=== PATIENT | male | born 1975 ===

== ENCOUNTER 2018-02-22 10:25 | Inpatient (IN) ==
--- NOTE | 2018-02-22 11:01 | CT ---
EXAM DATE: 02/22/2018 10:54 AM EDT AGE/SEX: 42 years / Male INDICATIONS: Stroke alert. Right side weakness. Right side drift. CLINICAL DATA: This is the patient's initial encounter. Patient reports that signs and symptoms have been present for 1 day and indicates a pain score of 0/10. MEDICAL/SURGICAL HISTORY: Hypertension. None. RADIATION DOSE: 31.35 CTDI (mGy) COMPARISON: No prior exams available for comparison. TECHNIQUE: CT of the head without contrast. Using automated exposure control and adjustment of the mA and/or kV according to patient size, radiation dose was kept as low as reasonably achievable to ob tain optimal diagnostic quality images. DICOM format image data is available electronically for revi ew and comparison. FINDINGS: Cerebrum: The ventricles are normal for age. No evidence of midline shift, mass lesion, hemorrhage or acute infarction. No extraaxial fluid collections are seen. Posterior Fossa: The cerebellum and brainstem are intact. The 4th ventricle is midline. The cerebe llopontine angle is unremarkable. Extracranial: The visualized portion of the orbits is intact. Skull: The calvaria is intact. No evidence of skull fracture. CONCLUSION: 1. No acute intracranial abnormalities. Report was called by [Dr. Tripathi to Dr. Jarquin at 10:59 AM ] Electronically signed by: Savage Tripathi MD 02/22/2018 11:00 AM EDT
[2018-02-22 11:04] LABS: Baso % (Auto) 0.3 % (0.0-2.0); Eos # (Auto) 0.3 th/mm3 (0.0-0.4); Eos % (Auto) 4.5 % (0.0-4.0); Hematocrit 51.3 % (39.0-51.0); Hemoglobin 17.1 gm/dL (13.0-17.0); Lymph # (Auto) 2.9 th/mm3 (1.0-4.8); Lymph % (Auto) 43.9 % (9.0-44.0); Mean Corpuscular HGB Conc 33.3 % (32.0-36.0); Mean Corpuscular Hemoglobin 28.9 pg (27.0-34.0); Mean Corpuscular Volume 86.8 fL (80.0-100.0); Mean Platelet Volume 9.2 fL (7.0-11.0); Mono # (Auto) 0.5 th/mm3 (0.0-0.9); Mono % (Auto) 7.6 % (0.0-8.0); Neut # (Auto) 2.9 th/mm3 (1.8-7.7); Neut % (Auto) 43.7 % (16.0-70.0); Platelet Count 199 th/mm3 (150-450); Red Blood Count 5.91 mil/mm3 (4.50-5.90); Red Cell Distribution Width 13.3 % (11.6-17.2); White Blood Count 6.5 th/mm3 (4.0-11.0)
--- NOTE | 2018-02-22 11:13 | CT ---
EXAM DATE: 02/22/2018 11:01 AM EDT AGE/SEX: 42 years / Male INDICATIONS: Stroke alert. Right sided weakness. Right side drift. CLINICAL DATA: This is the patient's initial encounter. Patient reports that signs and symptoms have been present for 1 day and indicates a pain score of 0/10. MEDICAL/SURGICAL HISTORY: Hypertension. None. RADIATION DOSE: 28.07 CTDI (mGy) COMPARISON: No prior exams available for comparison. TECHNIQUE: Volumetric scanning was performed using a multi-row detector CT scanner during bolus infu lucila of 95 ml Visipaque 320 (iodixanol) nonionic water-soluble contrast as a single exam dose. The data was post processed with a variety of visualization algorithms including full volume maximum int ensity projection, multi-planar sliding thin slab reformation, curved planar reformation, and surface rendering techniques. Using automated exposure control and adjustment of the mA and/or kV according to patient size, radiation dose was kept as low as reasonably achievable to obtain optimal diagnosti c quality images. DICOM format image data is available electronically for review and comparison. FINDINGS: There is excellent visualization of the major intracranial arteries out to the second-order branch ve ssels. There is no evidence for aneurysm, vessel truncation or stenosis, and no evidence for vascula r malformation. CONCLUSION: 1. Negative CTA Head. Electronically signed by: Savage Tripathi MD 02/22/2018 11:11 AM EDT
[2018-02-22 11:14] LABS: Activated Partial Thrombo Time 25.8 sec (24.3-30.1); Prothrombin Time 10.3 sec (9.8-11.6)
[2018-02-22] MEDS ORDERED: Labetalol HCl Inj 100 MG/20 ML Vial IV.PUSH ONE ×2 (11:15→11:32)
[2018-02-22 11:23] LABS: Creatine Kinase 220 U/L (39-308)
--- NOTE | 2018-02-22 11:23 | ED ---
HPI General Chief Complaint: Neuro Symptoms/Deficit Stated Complaint: Neuro Time Seen by Provider: 02/22/18 10:37 History of Present Illness HPI Narrative: This patient was sitting down at work at 10 AM when he developed abrupt onset of right-sided weakness and some right-sided numbness. He has no prior history of CVA or TIA. No headache or speech slurring or confusion. He does not take any blood thinners. He came to the emergency room. I declared him a stroke alert and instituted the stroke alert protocol and sent him to the CT scanner after evaluation. Symptom severity is moderate. Duration 45 minutes. No alleviating factors. No exacerbating factors. Related Data Home Medications Medication Instructions Recorded Confirmed No Known Home Medications 02/22/18 02/22/18 Allergies Allergy/AdvReac Type Severity Reaction Status Date / Time No Known Allergies Allergy Verified 02/22/18 10:29 Review of Systems ROS: all other systems reviewed are negative [facility] Medical History Medical History Patient denies medical problems (Acute) Surgical History Surgical History No history of previous surgery (Acute) Social History Social History Substance History: No History of Abuse Smoking Status: Never smoker How Often Do You Have a Drink Containing Alcohol: Monthly or less Recent Out of Country Travel within the Last 8 Weeks: No Immunization History Tetanus Immunization: Unsure Exam Narrative Exam Narrative: GENERAL: Well-nourished, well-developed patient in no apparent distress. SKIN: Focused skin assessment reveals no rash and nodules. Skin is Warm and dry. HEAD: Atraumatic. Normocephalic. EYES: Pupils equal and round. No scleral icterus. No injection or drainage. ENT: No nasal bleeding or discharge. Mucous membranes pink and moist. NECK: Trachea midline. No JVD. CARDIOVASCULAR: Regular rate and rhythm. No murmur appreciated. RESPIRATORY: No accessory muscle use. Clear to auscultation. Breath sounds equal bilaterally. GASTROINTESTINAL: Abdomen soft, non-tender, nondistended. Hepatic and splenic margins not palpable. MUSCULOSKELETAL: No obvious deformities. No clubbing. No cyanosis. No edema. NEUROLOGICAL: Awake and alert. No obvious cranial nerve deficits. Motor exam does reveal some motor weakness of the right arm and right leg. Left side seems full at 5 out of 5. He has some subjective decreased sensation on the right side but sharp and light touch he reports symmetry throughout. Normal speech. PSYCHIATRIC: Appropriate mood and affect; insight and judgment normal. Course Initial Documented Vital Signs Temperature 98.3 F 02/22/18 10:29 Pulse Rate 114 H 02/22/18 10:29 Respiratory Rate 24 02/22/18 10:29 Blood Pressure 228/117 H 02/22/18 10:29 Pulse Oximetry 97 02/22/18 10:29 Last Documented Vital Signs Temperature 98.3 F 02/22/18 10:29 Pulse Rate 93 H 02/22/18 13:02 Respiratory Rate 21 02/22/18 13:02 Blood Pressure 153/97 H 02/22/18 13:02 Pulse Oximetry 98 02/22/18 13:02 Critical Care Time Critical Care Time: Yes Total Critical Care Time: 80 Attestation: Aggregate critical care time was 80 minutes. Time to perform other separately billable procedures was not included in the critical care time. My time did not include minutes spent treating any other patients simultaneously or on activities that did not directly contribute to the patient's treatment. The services I provided to this patient were to treat and/or prevent clinically significant deterioration that could result in: Permanent neurologic dysfunction , cardiopulmonary arrest, brain stem herniation I provided critical care services requiring my management, as noted below: Chart data review, documentation time, medication orders and management, vital sign assessments/reviewing monitor data, ordering and reviewing lab tests, ordering and interpreting/reviewing x-rays and diagnostic studies, care of the patient and discussion of the patient with the admitting physicians. NIH Stroke Scale NIH Stroke Scale Level of Consciousness: 0-Alert Orientation Questions: 0-Answers both correct Responds to Commands: 0-Both tasks correct Gaze Eye Movement: 0-Horizontal movement WNL Visual Sales: 0-No visual field defect Facial Movement: 1-Minor facial palsy Motor Functions Arm LEFT: 0-No drift Motor Functions Arm RIGHT: 1-Drift before 10 seconds Motor Functions Leg LEFT: 0-No drift Motor Functions Leg RIGHT: 1-Drift before 5 seconds Limb Ataxia: 1-Ataxia in one limb Sensory Loss: 1-Mild sensory loss Best Language: 0-Normal Articulation: 0-Normal Extinction or Inattention Sensory: 0-Absent Total: 5 Quality Measure Queries Stroke Last date observed well: 02/22/18 Last time observed well: 10:00 Medical Decision Making MDM Narrative Medical decision making narrative: This is a 42-year-old male who presents with strokelike symptoms and was made a stroke alert. He has been evaluated by a neurologist. Neurologist wants to institute TPA but the blood pressure is too high at this time. I gave him initially 10 mg IV labetalol when it was 201 systolic. Has come down to 180 systolic. At neurology recommendation I have given a second dose of labetalol. Plan is to institute TPA on the blood pressure is a bit improved. Accu-Chek is normal. Brain CT is reviewed with radiologist and found to show no hemorrhage. CTA of head and neck were done. All the labs reviewed and normal Blood pressure remained elevated and a Cardene drip was instituted. Blood pressure is now down to 168 systolic and TPA has been initiated. I reviewed with the rn compliance who will admit the patient for close intensive care monitoring on TPA. Medical Screen Exam Complete: Yes Emergency Medical Condition: Yes Differential Diagnosis Differential Diagnosis: Ischemic CVA, hemorrhagic CVA, TIA Medical Records Medical records reviewed: Yes I reviewed the patient's medical records. Lab Data Lab results reviewed: Yes I reviewed the patient's lab results. Lab results narrative: CBC normal and troponin normal. Result diagrams: 02/22/18 10:50 Lab Results 02/22/18 02/22/18 02/22/18 Range/Units 10:30 10:50 10:50 WBC (4.0-11.0) th/mm3 RBC (4.50-5.90) mil/mm3 Hgb (13.0-17.0) gm/dL POC Hgb (Calc) 16.7 (13.0-17.0) g/dL Hct (39.0-51.0) % POC Hct 49.0 (39-51.0) % MCV (80.0-100.0) fL MCH (27.0-34.0) pg MCHC (32.0-36.0) % RDW (11.6-17.2) % Plt Count (150-450) th/mm3 MPV (7.0-11.0) fL Neut % (Auto) (16.0-70.0) % Lymph % (Auto) (9.0-44.0) % Davis % (Auto) (0.0-8.0) % Eos % (Auto) (0.0-4.0) % Baso % (Auto) (0.0-2.0) % Neut # (Auto) (1.8-7.7) th/mm3 Lymph # (Auto) (1.0-4.8) th/mm3 Davis # (Auto) (0.0-0.9) th/mm3 Eos # (Auto) (0.0-0.4) th/mm3 Baso # (Auto) (0.0-0.2) th/mm3 WBC Differential Differential Comment PT (9.8-11.6) sec INR Ratio APTT (24.3-30.1) sec Fibrinogen (227-377) mg/dL POC Sodium 143 (137-144) mmol/L POC Potassium 3.2 L (3.6-5.0) mmol/L POC Chloride 104 (102-111) mmol/L POC BUN 16 (5-21) mg/dL POC Creatinine 1.3 (0.6-1.3) mg/dL POC Glucose 94 105 (68-110) mg/dl Total Creatine Kinase (39-308) U/L Troponin I (0.02-0.05) ng/mL Blood Type O Positive Blood Type Recheck Required Antibody Screen Negative 02/22/18 02/22/18 02/22/18 Range/Units 10:50 10:50 10:50 WBC 6.5 (4.0-11.0) th/mm3 RBC 5.91 H (4.50-5.90) mil/mm3 Hgb 17.1 H (13.0-17.0) gm/dL POC Hgb (Calc) (13.0-17.0) g/dL Hct 51.3 H (39.0-51.0) % POC Hct (39-51.0) % MCV 86.8 (80.0-100.0) fL MCH 28.9 (27.0-34.0) pg MCHC 33.3 (32.0-36.0) % RDW 13.3 (11.6-17.2) % Plt Count 199 (150-450) th/mm3 MPV 9.2 (7.0-11.0) fL Neut % (Auto) 43.7 (16.0-70.0) % Lymph % (Auto) 43.9 (9.0-44.0) % Davis % (Auto) 7.6 (0.0-8.0) % Eos % (Auto) 4.5 H (0.0-4.0) % Baso % (Auto) 0.3 (0.0-2.0) % Neut # (Auto) 2.9 (1.8-7.7) th/mm3 Lymph # (Auto) 2.9 (1.0-4.8) th/mm3 Davis # (Auto) 0.5 (0.0-0.9) th/mm3 Eos # (Auto) 0.3 (0.0-0.4) th/mm3 Baso # (Auto) 0.0 (0.0-0.2) th/mm3 WBC Differential . Differential Comment Auto diff final PT 10.3 (9.8-11.6) sec INR 1.0 Ratio APTT 25.8 (24.3-30.1) sec Fibrinogen 249 (227-377) mg/dL POC Sodium (137-144) mmol/L POC Potassium (3.6-5.0) mmol/L POC Chloride (102-111) mmol/L POC BUN (5-21) mg/dL POC Creatinine (0.6-1.3) mg/dL POC Glucose (68-110) mg/dl Total Creatine Kinase 220 (39-308) U/L Troponin I Less than 0.02 L (0.02-0.05) ng/mL Blood Type Blood Type Recheck Antibody Screen Imaging Data Attestation: I personally reviewed and interpreted this imaging study as follows : My impression: Brain CT is normal. CTA of head and neck are also negative for obstruction Radiologist's impression: Head CT 02/22/18 10:44 CONCLUSION: 1. No acute intracranial abnormalities. Report was called by [Dr. Tripathi to Dr. Jarquin at 10:59 AM ] Head CTA 02/22/18 10:44 CONCLUSION: 1. Negative CTA Head. Neck CTA 02/22/18 10:44 CONCLUSION: 1. Negative CTA carotids. Hypoplastic vertebral arteries. Discharge Plan Discharge Disposition Patient Disposition: 30 Still Patient Discharge Details Diagnosis: Acute ischemic cerebrovascular accident (CVA) involving middle cerebral artery territory, Received intravenous tissue plasminogen activator (t-PA) in emergency department Physicians Team ED Provider: David Jarquin Primary Care Provider: UNKNOWN, Rxs /Orders / Referrals /Forms Prescriptions: No Action No Known Home Medications RF: 0 Discharge Interventions Interventions: Vital Signs Last Done: 02/22/18 10:55 Status ED Status: With Doctor
--- NOTE | 2018-02-22 11:27 | CT ---
EXAM DATE: 02/22/2018 11:12 AM EDT AGE/SEX: 42 years / Male INDICATIONS: Stroke alert. Right sided weakness and right side drift. CLINICAL DATA: This is the patient's initial encounter. Patient reports that signs and symptoms have been present for 1 day and indicates a pain score of 0/10. MEDICAL/SURGICAL HISTORY: Hypertension. None. RADIATION DOSE: 28.07 CTDI (mGy) COMPARISON: [facility] [place], CTA HEAD W CONTRAST W 3D, 02/22/2018. . TECHNIQUE: Volumetric scanning was performed using a multirow detector CT scanner during bolus infus ion of 95 ml Visipaque 320 (iodixanol) nonionic water-soluble contrast as a single exam dose. The data was postprocessed with a variety of visualization algorithms including full-volume maximum inten sity projection, multiplanar sliding thin-slab reformation, curved-planar reformation, and surface-re ndering techniques. Using automated exposure control and adjustment of the mA and/or kV according to patient size, radiation dose was kept as low as reasonably achievable to obtain optimal diagnostic q uality images. DICOM format image data is available electronically for review and comparison. Percent stenosis is calculated using the diameter of the stenotic region over the diameter of the nor mal distal internal carotid artery. FINDINGS: The common carotid and internal carotid arteries are patent. No aneurysm or dissection. Vertebral art eries are hypoplastic and most of the posterior circulation comes from [place]. Findings dis cussed with Dr. Bosch. CONCLUSION: 1. Negative CTA carotids. Hypoplastic vertebral arteries. Electronically signed by: Savage Tripathi MD 02/22/2018 11:26 AM EDT
[2018-02-22] MEDS ORDERED: Alteplase Drip 81 MG in Syringe/Bag 1 EACH IV.SIG ONE (12:04)
[2018-02-22] MEDS ORDERED: Alteplase Bolus 9 MG/9 ML Syringe IV.PUSH ONE (12:04)
[2018-02-22] MEDS: niCARdipine Inj 25 MG in Sodium Chlor 0.9% Inj 240 ML IV.CONT PRN ×2 (12:19→22:09)
--- NOTE | 2018-02-22 12:39 | MB ---
cc: Neeraj Bosch MD DATE: 02/22/2018 NEUROLOGY CONSULTATION HISTORY OF PRESENT ILLNESS: A 42-year-old right-handed man with a history of hypertension, otherwise he has been very healthy. He does not take any medications; no blood thinners and he was in a chair today at work at about 9:45 when suddenly he stood up and he noticed that his right arm and leg were tingly and then it seemed to go away after a few seconds and then it kept coming and going and noticed he was unsteady on the right side; came in as a stroke alert. He noticed a tingling a little bit in his face also when he got to the ER. REVIEW OF SYSTEMS: He denies any diabetes, hypercholesterolemia, [place], stent, angioplasty, AFib, Coumadin, chest pain, palpitations, headache, renal, hepatic or pulmonary disease, thyroid disease, lupus, ulcer, cancer, seizure, stroke. No history of bleeding in the brain or brain surgery. SOCIAL HISTORY: He is a not a smoker or drinker, lives with his mother. FAMILY HISTORY: Negative for cancer or seizure. Positive for stroke in uncle. MEDICATIONS: None. He does not take any aspirin or any blood thinners. PHYSICAL EXAMINATION: VITAL SIGNS: On exam, he has been a 201/109. We are having trouble getting his blood pressure down; he is now getting labetalol. Sinus rhythm 95-100, afebrile. NECK: There were no carotid bruits. HEART: Regular rhythm. I did not detect a murmur. NEUROLOGIC: Pupils are equal. Visual aponte are full. Extraocular movements intact was just some hints of nystagmus by horizontal gaze. Face is symmetric with normal sensation. Tongue was midline. He has a positive right drift. He had normal strength in upper and lower extremities bilaterally including the right triceps and finger extensors, but his was very clumsy on the right hand. DTRs are trace in the upper extremities, 2+ and symmetric at the knees. Toes are downgoing bilaterally. There is no heel clonus. Pinprick was intact throughout bilateral face, arm, and legs. He is extremely ataxic on right [id number] and a little less so, but was still very ataxic on right [id number]. He is awake and alert. Speech is fluent. He is not aphasic. NIH stroke scale is a 2; however, he is extremely ataxic on the right. LABORATORY DATA: CBC: His hematocrit 51 otherwise normal, platelet count normal. BMP is normal. CPK is 220. Troponins negative. Coags are normal. IMAGIN. CAT scan of the brain is negative. 2. CTA of the neck and [place]; he is left vertebral dominant. The right vertebral comes up and appears to end possibly in the superior cerebellar artery. 3. CTA of the head was negative . IMPRESSION: Probably a right cerebellar infarct. We will check an MRI of the brain. He is going to get TPA as soon as we get his blood pressure down; we will do to some other workup on him. MD BECCA Taylor/jere/trina , 11:46 AM , 11:56 AM
[2018-02-22] MEDS ORDERED: Potassium Chlor 40 mEq Premix 40 MEQ/100 ML PIGGYBACK IV.SIG PRN ×2 (13:27)
[2018-02-22] MEDS ORDERED: Potassium Phosphate Inj 30 MMOL in Sodium Chlor 0.9% Inj 250 ML IV.SIG PRN (13:27)
[2018-02-22] MEDS ORDERED: Potassium Chloride 25 MEQ Effervescent Tablet PO PRN ×2 (13:27→14:05)
[2018-02-22] MEDS ORDERED: Sodium Phosphate Inj 30 MMOL in Sodium Chlor 0.9% Inj 250 ML IV.SIG PRN (13:27)
[2018-02-22] MEDS ORDERED: Acetaminophen 325 MG Tablet PO PRN (13:27)
[2018-02-22] MEDS ORDERED: Bisacodyl 10 MG Supp RECTAL PRN (13:27)
[2018-02-22] MEDS ORDERED: Magnesium Sulfate Inj 4 GM in Sodium Chlor 0.9% Inj 92 ML IV.SIG PRN (13:27)
[2018-02-22] MEDS ORDERED: Potassium Phosphate 500 MG Soluble Tablet PO PRN ×3 (13:27→14:06)
[2018-02-22] MEDS ORDERED: Magnesium Sulfate Inj 2 GM in Sodium Chlor 0.9% Inj 96 ML IV.SIG PRN (13:27)
[2018-02-22] MEDS ORDERED: Magnesium Oxide 400 MG Tablet PO PRN (13:27)
[2018-02-22] MEDS ORDERED: Potassium Chlor 20 mEq Premix 20 MEQ/100 ML PIGGYBACK IV.SIG PRN (13:27)
[2018-02-22] MEDS ORDERED: Dextrose 50% in Water 50 ML Vial IV.PUSH PRN (13:30)
[2018-02-22] MEDS ORDERED: Labetalol HCl Inj 100 MG/20 ML Vial IV.PUSH PRN (13:30)
[2018-02-22 13:43] LABS: Bilirubin,Urine Negative (Negative); Clarity,Urine Clear (Clear); Color,Urine Straw (Yellw/Straw); Glucose,Urine (UA) Negative (Negative); Leukocyte Esterase,Urine Negative (Negative); Nitrite,Urine Negative (Negative); Specific Gravity,Urine 1.028 (1.002-1.035)
[2018-02-22 13:45] LABS: Amphetamine Screen,Urine Neg (Neg); Barbiturate Screen,Urine Neg (Neg); Cannabinoid Screen,Urine Neg (Neg); Cocaine Screen,Urine Neg (Neg)
--- NOTE | 2018-02-22 13:54 | P.HPCC ---
History of Present Illness Service: Critical care Primary Care Physician: UNKNOWN Chief Complaint: Weakness/ numbness History of Present Illness: 42yM who presented to the ED complaining of sudden-onset right upper and lower extremity weakness and numbness which started at 10 AM. He denies any difficulty with word-finding, slurred speech, confusion, visual disturbance, facial droop, or left-sided symptoms. A stroke alert was activated in the ED, the patient was found to have an NIHSS of 5, and neurology was consulted; he was given alteplase at 12:04 PM. He also had an elevated BP on arrival (200s systolic) and was given 2 doses of labetalol prior to initiation of tPA. He reports complete resolution of symptoms and offers no complaints at present. Past medical history significant for HTN but does not take medication for this. Denies tobacco, alcohol, or illicit drug use. Family history significant for uncle with stroke. - Diagnosis (1) Acute CVA (cerebrovascular accident) (2) Hypertension Review of Systems All other systems reviewed negative except as stated in HPI Constitutional: Denies fever(s) Eyes: Denies change in vision Ears, Nose, Mouth, and Throat: Denies difficulty swallowing Cardiovascular: Denies chest pain Respiratory: Denies shortness of breath Gastrointestinal: Denies vomiting Neurologic: Reports numbness, Reports weakness, Denies confusion Psychiatric: Denies confusion PMFSH - History History Provided By: Patient - Medical History Medical History: Medical History (Last Reviewed 02/22/18 @ 13:42 by Nae Serrano DO) Patient denies medical problems - Surgical History Surgical History: Surgical History (Last Reviewed 02/22/18 @ 13:42 by Nae Serrano DO) No history of previous surgery - Social History I have reviewed the patient's Social History: Yes - Tobacco History Smoking Status: Never smoker - Alcohol History How Often Do You Have a Drink Containing Alcohol: Monthly or less - Substance Use History Substance History: No History of Abuse - Travel History Recent Travel Out of the Country Within the Last 8 Weeks: No - Immunization History Tetanus Immunization: Unsure Medications and Allergies Active Medications: Active Medications Acetaminophen (Tylenol) 650 mg PO Q6H PRN PRN Reason: PAIN 1-10 AND/OR FEVER >101F Al Hydroxide/Mg Hydroxide (Milk Of Magnesia Liq) 30 ml PO Q12H PRN PRN Reason: Mild Constipation Aspirin (Aspirin Chew) 81 mg PO DAILY DANIEL Bisacodyl (Dulcolax Supp) 10 mg RECTAL DAILY PRN PRN Reason: SEVERE CONSITIPATION Chlorhexidine Gluconate (Chlorhexidine 2% Cloth) 3 pack TOPICAL DAILY@0400 DANIEL Stop: 02/28/18 03:59 Chlorhexidine Gluconate (Chlorhexidine 2% Cloth) 3 pack TOPICAL DAILY@0400 PRN PRN Reason: Extra cloth needed Stop: 02/28/18 03:59 Dextrose (D50w Vial) 50 ml IV.PUSH UNSCH PRN PRN Reason: PER HYPOGLYCEMIA PROTOCOL Enalaprilat (Vasotec Inj) 1.25 mg IV.PUSH Q4H PRN PRN Reason: For SBP > 220 or DBP > 120 Glucagon (Glucagon Inj) 1 mg OTHER UNSCH PRN PRN Reason: for Hypoglycemia Protocol Nicardipine HCl 25 mg/ Sodium (Chloride) 250 mls @ 50 mls/hr IV.CONT TITRATE PRN; Protocol PRN Reason: Per Protocol Last Titration: 02/22/18 12:46 Dose: 0 mg/hr, 0 mls/hr Magnesium Sulfate 2 gm/ Sodium (Chloride) 100 mls @ 50 mls/hr IV.SIG UNSCH PRN PRN Reason: For Magnesium 1.2 - 1.6 mg/dL Potassium Chloride (Kcl 40 Meq Premix Inj) 40 meq in 100 mls @ 25 mls/hr IV.SIG Q2H PRN PRN Reason: For Potassium 2.8 - 3.2 mEq/L Potassium Chloride (Kcl 20 Meq Premix Inj) 20 meq in 100 mls @ 50 mls/hr IV.SIG Q2H PRN PRN Reason: For Potassium 3.3 - 3.5 mEq/L Potassium Chloride (Kcl 20 Meq Premix Inj) 20 meq in 100 mls @ 50 mls/hr IV.SIG Q2H PRN PRN Reason: For Potassium 2.8 - 3.2 mEq/L Potassium Phosphate 30 mmol/ (Sodium Chloride) 260 mls @ 42 mls/hr IV.SIG UNSCH PRN PRN Reason: SEE LABEL COMMENTS Magnesium Sulfate 4 gm/ Sodium (Chloride) 100 mls @ 50 mls/hr IV.SIG UNSCH PRN PRN Reason: For Magnesium 0.9 - 1.1 mg/dL Potassium Chloride (Kcl 40 Meq Premix Inj) 40 meq in 100 mls @ 25 mls/hr IV.SIG UNSCH PRN PRN Reason: For Potassium 3.3 - 3.5 mEq/L Sodium Phosphate 30 mmol/ (Sodium Chloride) 260 mls @ 42 mls/hr IV.SIG UNSCH PRN PRN Reason: For Phosphorus < 2.5 mg/dL Insulin Aspart (Novolog Insulin Correctional Sugar Inj) 0 unit SQ ACHS DANIEL; Protocol Labetalol HCl (Trandate Inj) 10 mg IV.PUSH Q2H PRN PRN Reason: For SBP > 220 or DBP > 120 Lactulose (Lactulose Liq) 30 ml PO DAILY PRN PRN Reason: SEVERE CONSITIPATION Magnesium Oxide (Mag-Ox) 800 mg PO UNSCH PRN PRN Reason: For Magnesium 1.2 - 1.6 mg/dL Ondansetron HCl (Zofran Inj) 4 mg IV.PUSH Q6H PRN PRN Reason: NAUSEA OR VOMITING Potassium Bicarb/Potassium Chloride (K-Lyte Cl Eff) 50 meq PO UNSCH PRN PRN Reason: For Potassium 3.3 - 3.5 mEq/L Potassium Phosphate (K-Phos Original) 2,000 mg PO Q4H PRN PRN Reason: Phosphorus Less Than 2.5 mg/dL Potassium Phosphate (K-Phos Original) 2,000 mg PO UNSCH PRN PRN Reason: SEE LABEL COMMENTS Pravastatin Sodium (Pravachol) 40 mg PO HS DANIEL Senna/Docusate Sodium (Cee-Colace) 1 tab PO BID [facility] Sennosides (Senokot) 17.2 mg PO Q12H PRN PRN Reason: Moderate Constipation Sodium Chloride (Ns Flush) 2 ml IV.FLUSH BID [facility] Sodium Chloride (Ns Flush) 2 ml IV.FLUSH PRN PRN PRN Reason: FLUSH AFTER USING IV ACCESS Allergies Allergy/AdvReac Type Severity Reaction Status Date / Time No Known Allergies Allergy Verified 02/22/18 10:29 Home Medications Medication Instructions Recorded Confirmed Type No Known Home Medications 02/22/18 02/22/18 History Results - Labs CBC & Chem 7: 02/22/18 10:50 Labs: Short CBC 02/22/18 Range/Units 10:50 WBC 6.5 (4.0-11.0) th/mm3 Hgb 17.1 H (13.0-17.0) gm/dL Hct 51.3 H (39.0-51.0) % Plt Count 199 (150-450) th/mm3 Cardiac Enzymes 02/22/18 Range/Units 10:50 Total Creatine Kinase 220 (39-308) U/L Troponin I Less than 0.02 L (0.02-0.05) ng/mL - Imaging Impressions Head CT 02/22/18 10:44 CONCLUSION: 1. No acute intracranial abnormalities. Report was called by [Dr. Tripathi to Dr. Jarquin at 10:59 AM ] Head CTA 02/22/18 10:44 CONCLUSION: 1. Negative CTA Head. Neck CTA 02/22/18 10:44 CONCLUSION: 1. Negative CTA carotids. Hypoplastic vertebral arteries. Exam Vital signs: Vital Signs 02/22/18 10:29 02/22/18 10:37 02/22/18 10:50 Temperature 98.3 F Pulse Rate 114 H 100 H 94 H Respiratory Rate 24 20 Blood Pressure 228/117 H 201/109 H Pulse Oximetry 97 97 98 02/22/18 10:55 02/22/18 11:46 02/22/18 12:13 Temperature Pulse Rate 95 H 89 83 Respiratory Rate 20 21 24 Blood Pressure 197/116 H 179/111 H 183/105 H Pulse Oximetry 100 97 98 02/22/18 12:16 02/22/18 12:30 02/22/18 13:02 Temperature Pulse Rate 85 90 93 H Respiratory Rate 16 20 21 Blood Pressure 220/102 H 168/88 H 153/97 H Pulse Oximetry 95 98 98 Intake & Output 02/21/18 02/22/18 02/22/18 18:59 06:59 18:59 Weight 100.698 kg Narrative: GEN: Well-nourished, well-developed, no acute distress HEENT: NCAT, pupils 3 mm and reactive bilaterally, no facial droop NECK: Trachea midline CHEST: Regular rate and rhythm, no murmur PULM: Lungs clear to auscultation bilaterally ABD/GI: Soft and non-tender in all quadrants EXT/MSK: No peripheral edema SKIN: Warm and well-perfused NEURO: GCS 15, A&Ox3, NIHSS currently 0 * Speech clear and fluent, no slurred speech or aphasia, answers questions appropriately * furnace cooler II-XII grossly intact, no facial droop, tongue and uvula midline * Motor strength 5/5 in all extremities, no drift, sensation intact to all extremities * No limb ataxia * Pupils 3 mm and reactive * No focal neuro deficits PSYCH: Appropriate affect Sejal VTE Risk Assessment Sejal VTE Risk Assessment: No/Low Risk (score <= 1) VTE Pharmacological Exception Reason: High risk for bleeding (s/p t-PA) Sejal Risk Assessment Model: Point Value = 1 Point Value = 2 Point Value = 3 Point Value = 5 Age 41-60 Minor surgery BMI > 25 kg/m2 Swollen legs Varicose veins or History of unexplained or recurrent spontaneous Oral contraceptives or hormone replacement Sepsis (< 1 month) Serious lung disease, including pneumonia (< 1 month) Abnormal pulmonary function Acute myocardial infarction Congestive heart failure (< 1 month) History of inflammatory bowel disease Medical patient at bed rest Age 61-74 Arthroscopic surgery Major open surgery (> 45 min) Laparoscopic surgery (> 45 min) Malignancy Confined to bed (> 72 hours) Immobilizing plaster cast Central venous access Age >= 75 History of VTE Family history of VTE Factor V Leiden Prothrombin [id number] Lupus anticoagulant Anticardiolipin antibodies Elevated serum homocysteine Heparin-induced thrombocytopenia Other congenital or acquired thrombophilia Stroke (< 1 month) Elective arthroplasty Hip, pelvis, or leg fracture Acute spinal cord injury (< 1 month) Prophylaxis Regimen: Total Risk Factor Score Risk Level Prophylaxis Regimen 0-1 Low Early ambulation 2 Moderate Order ONE of the following: *Sequential Compression Device (SCD) *Heparin 5000 units SQ BID 3-4 Higher Order ONE of the following medications: *Heparin 5000 units SQ TID *Enoxaparin/Lovenox 40 mg SQ daily (WT < 150 kg, CrCl > 30 mL/min) *Enoxaparin/Lovenox 30 mg SQ daily (WT < 150 kg, CrCl > 10-29 mL/min) *Enoxaparin/Lovenox 30 mg SQ BID (WT < 150 kg, CrCl > 30 mL/min) AND/OR *Sequential Compression Device (SCD) 5 or more Highest Order ONE of the following medications: *Heparin 5000 units SQ TID (Preferred with Epidurals) *Enoxaparin/Lovenox 40 mg SQ daily (WT < 150 kg, CrCl > 30 mL/min) *Enoxaparin/Lovenox 30 mg SQ daily (WT < 150 kg, CrCl > 10-29 mL/min) *Enoxaparin/Lovenox 30 mg SQ BID (WT < 150 kg, CrCl > 30 mL/min) AND *Sequential Compression Device (SCD) Assessment and Plan - Problem List (1) Acute CVA (cerebrovascular accident) Code(s): I63.9 - Cerebral infarction, unspecified Status: Acute (2) Hypertension Code(s): I10 - Essential (primary) hypertension Status: Acute - Assessment and Plan Plan: 42yM presenting as a stroke alert, presumed ischemic CVA s/p tPA Acute ischemic cerebrovascular accident * Admit to ICU for close monitoring after thrombolytic therapy * BP control * ASA, statin * 2D echo * 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 This includes examining the patient, gathering history from someone other than the patient (i.e. chart review), discussing the patient's care with other providers, managing the patient's blood pressure and post-thrombolytic care, reviewing all radiologic and laboratory studies, and documentation. Amount of time is separate from teaching, counseling the patient and/or family, and exclusive of procedures. Level 3 H&P Code Status: Full H&P: Quality - Stroke Onset of Symptoms Date: 02/22/18 Onset of Symptoms Time: 10:00
[2018-02-22 13:55] LABS: Opiate Screen,Urine Neg (Neg)
[2018-02-22 14:08] LABS: Free T4 (Free Thyroxine) 1.16 ng/dL (0.76-1.46); Thyroid Stimulating Hormone 1.12 uIU/mL (0.358-3.740)
--- NOTE | 2018-02-22 14:09 | MR ---
EXAM DATE: 02/22/2018 1:59 PM EDT AGE/SEX: 42 years / Male INDICATIONS: Stroke. Right sided numbness and weakness. CLINICAL DATA: This is the patient's initial encounter. Patient reports that signs and symptoms have been present for 1 day and indicates a pain score of 0/10. MEDICAL/SURGICAL HISTORY: Hypertension. None. [place] [facility] [place]/2018. . TECHNIQUE: Multiplanar, multisequence examination of the brain was performed without and with 10 ml G adavist (gadobutrol) contrast as a single exam dose. FINDINGS: Cerebrum: The ventricles are normal for age. No evidence of midline shift, mass lesion, hemorrhage or acute infarction. No extraaxial fluid collections are seen. The pituitary gland and suprasellar cistern are normal in configuration. White Matter: No significant signal abnormalities are seen in the white matter. Posterior Fossa: The cerebellum and brainstem are intact. The 4th ventricle is midline. The cerebel lopontine angle is unremarkable. The cerebellar tonsils are normal in position. Diffusion Imaging: An area of restricted diffusion is seen involving the left trent radiata within the parietal lobe. This is bilobed in appearance. It measures approximately 1 cm in diameter. Extracranial: The visualized portions of the orbits and paranasal sinuses are unremarkable. Post Contrast: No abnormal areas of parenchymal or dural enhancement. No evidence of blood-brain ba rrier breakdown. CONCLUSION: 1. A small acute to subacute lacunar infarction involving the left trent radiata. Electronically signed by: Bright Henry MD 02/22/2018 2:08 PM EDT
[2018-02-22] MEDS ORDERED: Gadobutrol PF 10 MMOL/10 ML Vial (for RAD) IV.SIG ONE (14:12)
[2018-02-22] MEDS: Insulin NovoLOG Aspart Correctional Sugar Inj SQ SCH ×2 (17:55→21:25)
[2018-02-22] MEDS: Potassium Chlor 20 mEq Premix 20 MEQ/100 ML PIGGYBACK IV.SIG PRN ×2 (20:03→23:37)
[2018-02-22] MEDS: Senna/Docusate Sodium 8.6/50 MG Tablet PO SCH (21:25)
[2018-02-23] MEDS: Potassium Chlor 20 mEq Premix 20 MEQ/100 ML PIGGYBACK IV.SIG PRN ×2 (02:41→07:24)
[2018-02-23] MEDS ORDERED: Chlorhexidine Gluconate 2% 1 Pack (2 Cloths) TOPICAL PRN (04:00)
[2018-02-23] MEDS: Chlorhexidine Gluconate 2% 1 Pack (2 Cloths) TOPICAL SCH (05:11)
--- NOTE | 2018-02-23 08:23 | P.PNCC ---
Subjective Subjective Remarks/Hospital Course: 42yM who presented to the ED complaining of sudden-onset right upper and lower extremity weakness and numbness which started at 10 AM. He denies any difficulty with word-finding, slurred speech, confusion, visual disturbance, facial droop, or left-sided symptoms. A stroke alert was activated in the ED, the patient was found to have an NIHSS of 5, and neurology was consulted; he was given alteplase at 12:04 PM. He also had an elevated BP on arrival (200s systolic) and was given 2 doses of labetalol prior to initiation of tPA. He reports complete resolution of symptoms and offers no complaints at present. Past medical history significant for HTN but does not take medication for this. Denies tobacco, alcohol, or illicit drug use. Family history significant for uncle with stroke. 02/23: Stroke symptoms have cleared completely. He is scheduled for repeat CT of the head 24 hours following the TPA. Blood pressure control acceptable. Will probably need to be started on antihypertensives as a home medication. Neuro workup continues. I have initiated lisinopril and hydralazine rx. He tends to be bradycardic. - Diagnosis (1) Acute CVA (cerebrovascular accident) (2) Hypertension Objective Vital Signs / I&O: Vital Signs 02/22/18 10:29 02/22/18 10:37 02/22/18 10:50 Temperature 98.3 F Pulse Rate 114 H 100 H 94 H Respiratory Rate 24 20 Blood Pressure 228/117 H 201/109 H Pulse Oximetry 97 97 98 02/22/18 10:55 02/22/18 11:46 02/22/18 12:13 Temperature Pulse Rate 95 H 89 83 Respiratory Rate 20 21 24 Blood Pressure 197/116 H 179/111 H 183/105 H Pulse Oximetry 100 97 98 02/22/18 12:16 02/22/18 12:30 02/22/18 13:02 Temperature Pulse Rate 85 90 93 H Respiratory Rate 16 20 21 Blood Pressure 220/102 H 168/88 H 153/97 H Pulse Oximetry 95 98 98 02/22/18 13:15 02/22/18 13:30 02/22/18 13:45 Temperature Pulse Rate 87 78 84 Respiratory Rate 20 19 22 Blood Pressure 165/120 H 149/87 H 174/98 H Pulse Oximetry 95 97 97 02/22/18 14:44 02/22/18 14:46 02/22/18 15:00 Temperature 98.4 F Pulse Rate 92 H 90 84 Respiratory Rate 31 H 22 Blood Pressure 167/113 H Pulse Oximetry 96 02/22/18 15:01 02/22/18 15:31 02/22/18 16:00 Temperature 98.4 F Pulse Rate 85 81 76 Respiratory Rate 47 H 30 H 32 H Blood Pressure 166/95 H 172/99 H Pulse Oximetry 97 97 99 02/22/18 16:01 02/22/18 16:18 02/22/18 16:33 Temperature Pulse Rate 79 81 78 Respiratory Rate 26 H 23 25 H Blood Pressure 169/104 H 167/104 H 149/97 H Pulse Oximetry 98 97 97 02/22/18 16:48 02/22/18 17:00 02/22/18 17:03 Temperature Pulse Rate 80 77 77 Respiratory Rate 29 H 28 H 20 Blood Pressure 173/108 H 159/100 H Pulse Oximetry 98 96 94 L 02/22/18 17:18 02/22/18 17:33 02/22/18 17:34 Temperature Pulse Rate 64 81 81 Respiratory Rate 21 29 H 22 Blood Pressure 145/84 H 191/103 H 182/111 H Pulse Oximetry 95 99 98 02/22/18 17:48 02/22/18 18:00 02/22/18 18:03 Temperature Pulse Rate 84 91 H 93 H Respiratory Rate 31 H 17 27 H Blood Pressure 176/105 H 147/90 H 160/95 H Pulse Oximetry 97 98 97 02/22/18 18:18 02/22/18 18:33 02/22/18 18:48 Temperature Pulse Rate 89 99 H 99 H Respiratory Rate 34 H 24 24 Blood Pressure 147/90 H 153/90 H 158/92 H Pulse Oximetry 97 98 96 02/22/18 19:00 02/22/18 19:50 02/22/18 20:00 Temperature 98.8 F 98.8 F Pulse Rate 100 H 98 H 98 H Respiratory Rate 22 27 H 27 H Blood Pressure 140/87 159/96 H 153/88 H Pulse Oximetry 96 97 97 02/22/18 20:50 02/22/18 20:55 02/22/18 21:00 Temperature Pulse Rate 78 78 Respiratory Rate 21 21 Blood Pressure 146/80 H 140/76 Pulse Oximetry 94 L 96 94 L 02/22/18 21:50 02/22/18 22:00 02/22/18 23:00 Temperature Pulse Rate 75 73 70 Respiratory Rate 16 18 17 Blood Pressure 128/74 129/81 129/75 Pulse Oximetry 92 L 94 L 93 L 02/23/18 00:00 02/23/18 01:00 02/23/18 02:00 Temperature 98.2 F Pulse Rate 66 68 60 Respiratory Rate 16 16 16 Blood Pressure 116/69 124/74 121/75 Pulse Oximetry 94 L 94 L 95 02/23/18 03:00 02/23/18 04:00 02/23/18 05:00 Temperature 98.1 F Pulse Rate 76 56 L 56 L Respiratory Rate 19 16 14 Blood Pressure 142/92 H 142/89 H 170/98 H Pulse Oximetry 96 95 93 L 02/23/18 06:00 Temperature Pulse Rate 52 L Respiratory Rate 15 Blood Pressure 140/86 Pulse Oximetry 97 Intake & Output 02/22/18 02/23/18 02/23/18 18:59 06:59 18:59 Intake Total 321 / 321 450 / 450 100 / 100 Output Total 900 / 900 Balance 321 / 321 -450 / -450 100 / 100 Weight 105.1 kg 103.6 kg Intake: IV 81 / 81 450 / 450 100 / 100 Cardene Inj 25 MG In NS Inj 240 250 / 250 ML @ 5 MG/HR 50 mls/hr IV.CONT TITRATE PRN Rx#:[id number] Activase Drip 81 MG In Bag/ 81 / 81 Syringe 1 EACH @ 81 mls/hr IV. SIG ONCE ONE Rx#:[id number] KCl 20 mEq Premix Inj 20 meq In 200 / 200 100 / 100 100 ml @ 50 mls/hr IV.SIG Q2H PRN Rx#:[id number] Oral 240 / 240 Output: Urine 900 / 900 Other: # Voids 4 2 Weight On Admission 100.69 kg Result Diagrams: 02/22/18 10:50 Objective Remarks: Narrative: GEN: Well-nourished, well-developed, no acute distress, calm HEENT: NCAT, pupils 2 mm and reactive bilaterally, no facial droop NECK: Trachea midline, airway widely patent CHEST: Regular rate and rhythm, no murmur, rub. No JVD PULM: Lungs clear to auscultation bilaterally, no adventitious sounds. ABD/GI: Soft and non-tender in all quadrants, no guarding, bowel sounds active. EXT/MSK: No peripheral edema, warm, well-perfused NEURO: GCS 15, A&Ox3, NIHSS remains 0 * Speech clear and fluent, no slurred speech or aphasia, answers questions appropriately * shell molder II-XII grossly intact, no facial droop, tongue protrusion midline * Motor strength 5/5 in all extremities, no drift, sensation intact to all extremities * No limb ataxia * Pupils 3 mm and reactive * No focal neuro deficits PSYCH: Appropriate affect, calm, conversant. 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 Evaluation for etiology in progress. Progress Note: Quality - Stroke Onset of Symptoms Date: 02/22/18 Onset of Symptoms Time: 10:00
[2018-02-23] MEDS ORDERED: Lisinopril 5 MG Tablet PO SCH (09:00)
[2018-02-23] MEDS: Senna/Docusate Sodium 8.6/50 MG Tablet PO SCH ×2 (09:15→20:11)
--- NOTE | 2018-02-23 12:17 | P.PNNEU ---
Subjective Subjective Comments: sr s/p tpa Active Medications: Active Medications Acetaminophen (Tylenol) 650 mg PO Q6H PRN PRN Reason: PAIN 1-10 AND/OR FEVER >101F Al Hydroxide/Mg Hydroxide (Milk Of Vanesa Garnett) 30 ml PO Q12H PRN PRN Reason: Mild Constipation Aspirin (Aspirin Chew) 81 mg PO DAILY DANIEL Bisacodyl (Dulcolax Supp) 10 mg RECTAL DAILY PRN PRN Reason: SEVERE CONSITIPATION Chlorhexidine Gluconate (Chlorhexidine 2% Cloth) 3 pack TOPICAL DAILY@0400 DANIEL Stop: 02/28/18 03:59 Last Admin: 02/23/18 05:11 Dose: 3 pack Chlorhexidine Gluconate (Chlorhexidine 2% Cloth) 3 pack TOPICAL DAILY@0400 PRN PRN Reason: Extra cloth needed Stop: 02/28/18 03:59 Dextrose (D50w Vial) 50 ml IV.PUSH UNSCH PRN PRN Reason: PER HYPOGLYCEMIA PROTOCOL Enalaprilat (Vasotec Inj) 1.25 mg IV.PUSH Q4H PRN PRN Reason: For SBP > 220 or DBP > 120 Glucagon (Glucagon Inj) 1 mg OTHER UNSCH PRN PRN Reason: for Hypoglycemia Protocol Nicardipine HCl 25 mg/ Sodium (Chloride) 250 mls @ 50 mls/hr IV.CONT TITRATE PRN; Protocol PRN Reason: Per Protocol Last Titration: 02/23/18 00:00 Dose: 0 mg/hr, 0 mls/hr Magnesium Sulfate 2 gm/ Sodium (Chloride) 100 mls @ 50 mls/hr IV.SIG UNSCH PRN PRN Reason: For Magnesium 1.2 - 1.6 mg/dL Potassium Chloride (Kcl 40 Meq Premix Inj) 40 meq in 100 mls @ 50 mls/hr IV.SIG Q2H PRN PRN Reason: For Potassium 2.8 - 3.2 mEq/L Potassium Chloride (Kcl 20 Meq Premix Inj) 20 meq in 100 mls @ 50 mls/hr IV.SIG Q2H PRN PRN Reason: For Potassium 3.3 - 3.5 mEq/L Potassium Chloride (Kcl 20 Meq Premix Inj) 20 meq in 100 mls @ 50 mls/hr IV.SIG Q2H PRN PRN Reason: For Potassium 2.8 - 3.2 mEq/L Last Admin: 02/23/18 07:24 Dose: 20 mls/hr Potassium Phosphate 30 mmol/ (Sodium Chloride) 260 mls @ 42 mls/hr IV.SIG UNSCH PRN PRN Reason: SEE LABEL COMMENTS Magnesium Sulfate 4 gm/ Sodium (Chloride) 100 mls @ 50 mls/hr IV.SIG UNSCH PRN PRN Reason: For Magnesium 0.9 - 1.1 mg/dL Potassium Chloride (Kcl 40 Meq Premix Inj) 40 meq in 100 mls @ 25 mls/hr IV.SIG UNSCH PRN PRN Reason: For Potassium 3.3 - 3.5 mEq/L Sodium Phosphate 30 mmol/ (Sodium Chloride) 260 mls @ 42 mls/hr IV.SIG UNSCH PRN PRN Reason: For Phosphorus < 2.5 mg/dL Insulin Aspart (Novolog Insulin Correctional Sugar Inj) 0 unit SQ ACHS [facility]; Protocol Last Admin: 02/22/18 21:25 Dose: Not Given Labetalol HCl (Trandate Inj) 10 mg IV.PUSH Q2H PRN PRN Reason: For SBP > 220 or DBP > 120 Lactulose (Lactulose Liq) 30 ml PO DAILY PRN PRN Reason: SEVERE CONSITIPATION Lisinopril (Prinivil) 5 mg PO DAILY [facility] Last Admin: 02/23/18 09:15 Dose: 5 mg Magnesium Oxide (Mag-Ox) 800 mg PO UNSCH PRN PRN Reason: For Magnesium 1.2 - 1.6 mg/dL Ondansetron HCl (Zofran Inj) 4 mg IV.PUSH Q6H PRN PRN Reason: NAUSEA OR VOMITING Potassium Bicarb/Potassium Chloride (K-Lyte Cl Eff) 50 meq PO UNSCH PRN PRN Reason: For Potassium 3.3 - 3.5 mEq/L Potassium Phosphate (K-Phos Original) 2,000 mg PO UNSCH PRN PRN Reason: SEE LABEL COMMENTS Potassium Phosphate (K-Phos Original) 2,000 mg PO Q4H PRN PRN Reason: Phosphorus Less Than 2.5 mg/dL Pravastatin Sodium (Pravachol) 40 mg PO HS [facility] Last Admin: 02/22/18 21:25 Dose: Not Given Senna/Docusate Sodium (Cee-Colace) 1 tab PO BID [facility] Last Admin: 02/23/18 09:15 Dose: 1 tab Sennosides (Senokot) 17.2 mg PO Q12H PRN PRN Reason: Moderate Constipation Sodium Chloride (Ns Flush) 2 ml IV.FLUSH BID DANIEL Last Admin: 02/22/18 20:43 Dose: 2 ml Sodium Chloride (Ns Flush) 2 ml IV.FLUSH UNSCH PRN PRN Reason: FLUSH AFTER USING IV ACCESS Allergies/Adverse Reactions: Allergies Allergy/AdvReac Type Severity Reaction Status Date / Time No Known Allergies Allergy Verified 02/22/18 10:29 Physical Exam Vital signs: Vital Signs 02/22/18 12:16 02/22/18 12:30 02/22/18 13:02 Temperature Pulse Rate 85 90 93 H Respiratory Rate 16 20 21 Blood Pressure 220/102 H 168/88 H 153/97 H Pulse Oximetry 95 98 98 02/22/18 13:15 02/22/18 13:30 02/22/18 13:45 Temperature Pulse Rate 87 78 84 Respiratory Rate 20 19 22 Blood Pressure 165/120 H 149/87 H 174/98 H Pulse Oximetry 95 97 97 02/22/18 14:44 02/22/18 14:46 02/22/18 15:00 Temperature 98.4 F Pulse Rate 92 H 90 84 Respiratory Rate 31 H 22 Blood Pressure 167/113 H Pulse Oximetry 96 02/22/18 15:01 02/22/18 15:31 02/22/18 16:00 Temperature 98.4 F Pulse Rate 85 81 76 Respiratory Rate 47 H 30 H 32 H Blood Pressure 166/95 H 172/99 H Pulse Oximetry 97 97 99 02/22/18 16:01 02/22/18 16:18 02/22/18 16:33 Temperature Pulse Rate 79 81 78 Respiratory Rate 26 H 23 25 H Blood Pressure 169/104 H 167/104 H 149/97 H Pulse Oximetry 98 97 97 02/22/18 16:48 02/22/18 17:00 02/22/18 17:03 Temperature Pulse Rate 80 77 77 Respiratory Rate 29 H 28 H 20 Blood Pressure 173/108 H 159/100 H Pulse Oximetry 98 96 94 L 02/22/18 17:18 02/22/18 17:33 02/22/18 17:34 Temperature Pulse Rate 64 81 81 Respiratory Rate 21 29 H 22 Blood Pressure 145/84 H 191/103 H 182/111 H Pulse Oximetry 95 99 98 02/22/18 17:48 02/22/18 18:00 02/22/18 18:03 Temperature Pulse Rate 84 91 H 93 H Respiratory Rate 31 H 17 27 H Blood Pressure 176/105 H 147/90 H 160/95 H Pulse Oximetry 97 98 97 02/22/18 18:18 02/22/18 18:33 02/22/18 18:48 Temperature Pulse Rate 89 99 H 99 H Respiratory Rate 34 H 24 24 Blood Pressure 147/90 H 153/90 H 158/92 H Pulse Oximetry 97 98 96 02/22/18 19:00 02/22/18 19:50 02/22/18 20:00 Temperature 98.8 F 98.8 F Pulse Rate 100 H 98 H 98 H Respiratory Rate 22 27 H 27 H Blood Pressure 140/87 159/96 H 153/88 H Pulse Oximetry 96 97 97 02/22/18 20:50 02/22/18 20:55 02/22/18 21:00 Temperature Pulse Rate 78 78 Respiratory Rate 21 21 Blood Pressure 146/80 H 140/76 Pulse Oximetry 94 L 96 94 L 02/22/18 21:50 02/22/18 22:00 02/22/18 23:00 Temperature Pulse Rate 75 73 70 Respiratory Rate 16 18 17 Blood Pressure 128/74 129/81 129/75 Pulse Oximetry 92 L 94 L 93 L 02/23/18 00:00 02/23/18 01:00 02/23/18 02:00 Temperature 98.2 F Pulse Rate 66 68 60 Respiratory Rate 16 16 16 Blood Pressure 116/69 124/74 121/75 Pulse Oximetry 94 L 94 L 95 02/23/18 03:00 02/23/18 04:00 02/23/18 05:00 Temperature 98.1 F Pulse Rate 76 56 L 56 L Respiratory Rate 19 16 14 Blood Pressure 142/92 H 142/89 H 170/98 H Pulse Oximetry 96 95 93 L 02/23/18 06:00 02/23/18 06:03 02/23/18 06:18 Temperature Pulse Rate 52 L 53 L 54 L Respiratory Rate 15 15 15 Blood Pressure 140/86 149/91 H Pulse Oximetry 97 97 96 02/23/18 06:33 02/23/18 06:48 02/23/18 07:00 Temperature Pulse Rate 56 L 50 L 49 L Respiratory Rate 12 20 17 Blood Pressure 159/98 H 140/93 H Pulse Oximetry 97 90 L 93 L 02/23/18 07:03 02/23/18 07:18 02/23/18 07:33 Temperature Pulse Rate 68 65 50 L Respiratory Rate 34 H 20 15 Blood Pressure 159/87 H 159/105 H 162/107 H Pulse Oximetry 98 95 98 02/23/18 07:48 02/23/18 08:00 02/23/18 08:03 Temperature 98.5 F Pulse Rate 54 L 48 L 51 L Respiratory Rate 13 11 L 13 Blood Pressure 176/88 H 165/82 H Pulse Oximetry 98 97 97 02/23/18 08:18 02/23/18 08:33 02/23/18 08:48 Temperature Pulse Rate 52 L 53 L 50 L Respiratory Rate 15 11 L 6 L Blood Pressure 171/78 H 172/89 H 176/99 H Pulse Oximetry 95 95 99 02/23/18 09:00 02/23/18 09:03 02/23/18 09:23 Temperature Pulse Rate 50 L 50 L 63 Respiratory Rate 13 15 24 Blood Pressure 173/103 H 186/90 H Pulse Oximetry 96 97 98 02/23/18 09:33 02/23/18 09:48 02/23/18 10:00 Temperature Pulse Rate 60 70 62 Respiratory Rate 14 29 H 15 Blood Pressure 170/98 H 169/106 H Pulse Oximetry 97 96 96 02/23/18 10:03 02/23/18 10:18 02/23/18 10:33 Temperature Pulse Rate 63 62 69 Respiratory Rate 12 22 24 Blood Pressure 189/117 H 172/113 H 167/107 H Pulse Oximetry 99 98 98 02/23/18 10:48 02/23/18 11:00 02/23/18 11:03 Temperature Pulse Rate 72 68 67 Respiratory Rate 22 23 25 H Blood Pressure 168/105 H 158/103 H Pulse Oximetry 98 98 99 02/23/18 11:18 02/23/18 11:33 Temperature Pulse Rate 57 L 71 Respiratory Rate 22 25 H Blood Pressure 149/92 H 155/98 H Pulse Oximetry 97 99 Intake & Output 02/22/18 02/23/18 02/23/18 18:59 06:59 18:59 Intake Total 321 / 321 450 / 450 100 / 100 Output Total 900 / 900 Balance 321 / 321 -450 / -450 100 / 100 Weight 105.1 kg 103.6 kg Intake: IV 81 / 81 450 / 450 100 / 100 Cardene Inj 25 MG In NS Inj 240 250 / 250 ML @ 5 MG/HR 50 mls/hr IV.CONT TITRATE PRN Rx#:[id number] Activase Drip 81 MG In Bag/ Syringe 1 EACH @ 81 mls/hr IV. SIG ONCE ONE Rx#:[id number] KCl 20 mEq Premix Inj 20 meq In 200 / 200 100 / 100 100 ml @ 50 mls/hr IV.SIG Q2H PRN Rx#:[id number] Oral 240 / 240 Output: Urine 900 / 900 Other: # Voids 4 2 Weight On Admission 100.69 kg Narrative: awake nl speech 5/5 not ataxic on r any more Objective Laboratory Results - last 24 hr 02/22/18 02/22/18 02/22/18 10:50 10:50 13:01 ESR 1 POC Glucose TSH 1.120 Free T4 1.16 Urine Color Urine Clarity Urine pH Ur Specific [place] Urine Protein Urine Glucose (UA) Urine Ketones Urine Occult Blood Urine Nitrate Urine Bilirubin Urine Urobilinogen Ur Leukocyte Esterase Urine RBC Urine WBC Micro UA Comment Ur Microscopic Review Urine Culture Comments Nasal Screen MRSA (PCR) Urine Opiates Screen Neg Ur Barbiturates Screen Neg Ur Amphetamines Screen Neg U Benzodiazepines Scrn Neg Urine Cocaine Screen Neg U Cannabinoids Screen Neg 02/22/18 02/22/18 02/22/18 13:01 15:28 17:24 ESR POC Glucose 94 TSH Free T4 Urine Color Straw Urine Clarity Clear Urine pH 7.0 Ur Specific [place] 1.028 Urine Protein Negative Urine Glucose (UA) Negative Urine Ketones Negative Urine Occult Blood Negative Urine Nitrate Negative Urine Bilirubin Negative Urine Urobilinogen Less than 2 Ur Leukocyte Esterase Negative Urine RBC 1 Urine WBC Less than 1 Micro UA Comment Cath-culture not ind Ur Microscopic Review Not Reportable Urine Culture Comments Cath-cult not ind Nasal Screen MRSA (PCR) Not detected Urine Opiates Screen Ur Barbiturates Screen Ur Amphetamines Screen U Benzodiazepines Scrn Urine Cocaine Screen U Cannabinoids Screen 02/22/18 02/23/18 21:05 09:21 ESR POC Glucose 87 87 TSH Free T4 Urine Color Urine Clarity Urine pH Ur Specific [place] Urine Protein Urine Glucose (UA) Urine Ketones Urine Occult Blood Urine Nitrate Urine Bilirubin Urine Urobilinogen Ur Leukocyte Esterase Urine RBC Urine WBC Micro UA Comment Ur Microscopic Review Urine Culture Comments Nasal Screen MRSA (PCR) Urine Opiates Screen Ur Barbiturates Screen Ur Amphetamines Screen U Benzodiazepines Scrn Urine Cocaine Screen U Cannabinoids Screen Review/Management - Review/Management Plan: imp small deep cva on mri fu labs holter echo asa 325 for now ctax2 neg ok to tele floor and bp to 140/80 ok
--- NOTE | 2018-02-23 12:21 | CT ---
EXAM DATE: 02/23/2018 12:12 PM EDT AGE/SEX: 42 years / Male INDICATIONS: F/U TPA, post stroke alert. CLINICAL DATA: This is the patient's subsequent encounter. Patient reports that signs and symptoms h ave been present for 1 day and indicates a pain score of 0/10. MEDICAL/SURGICAL HISTORY: Hypertension. Cerebrovascular disease. None. RADIATION DOSE: 37.77 CTDI (mGy) COMPARISON: [facility] [place], CT HEAD W/O CONTRAST, 02/22/2018. [facility] [place], CTA HEAD W CONTRAST W 3D, 02/22/2018. . TECHNIQUE: CT of the head without contrast. Using automated exposure control and adjustment of the mA and/or kV according to patient size, radiation dose was kept as low as reasonably achievable to ob tain optimal diagnostic quality images. DICOM format image data is available electronically for revi ew and comparison. FINDINGS: Cerebrum: The ventricles are normal for age. No evidence of midline shift, mass lesion, hemorrhage or acute infarction. No extraaxial fluid collections are seen. Posterior Fossa: The cerebellum and brainstem are intact. The 4th ventricle is midline. The cerebe llopontine angle is unremarkable. Extracranial: The visualized portion of the orbits is intact. Skull: The calvaria is intact. No evidence of skull fracture. CONCLUSION: 1. Negative CT Head non contrast. . Electronically signed by: Antoni Aguilar MD 02/23/2018 12:20 PM EDT
[2018-02-23] MEDS: Insulin NovoLOG Aspart Correctional Sugar Inj SQ SCH ×3 (13:11→20:50)
[2018-02-23] MEDS: Aspirin 325 MG Tablet PO SCH (13:16)
[2018-02-23] MEDS ORDERED: hydrALAZINE HCl Inj 20 MG/ML Vial IV.PUSH PRN (13:29)
[2018-02-23] MEDS: hydrALAZINE 50 MG Tablet PO SCH ×2 (13:58→20:11)
[2018-02-23 15:34] LABS: Baso % (Auto) 0.6 % (0.0-2.0); Eos # (Auto) 0.2 th/mm3 (0.0-0.4); Eos % (Auto) 3.9 % (0.0-4.0); Hematocrit 49.5 % (39.0-51.0); Hemoglobin 16.7 gm/dL (13.0-17.0); Lymph % (Auto) 34.5 % (9.0-44.0); Mean Corpuscular HGB Conc 33.7 % (32.0-36.0); Mean Corpuscular Hemoglobin 29.3 pg (27.0-34.0); Mean Corpuscular Volume 86.9 fL (80.0-100.0); Mean Platelet Volume 9.3 fL (7.0-11.0); Mono # (Auto) 0.3 th/mm3 (0.0-0.9); Mono % (Auto) 5.1 % (0.0-8.0); Neut # (Auto) 3.3 th/mm3 (1.8-7.7); Neut % (Auto) 55.9 % (16.0-70.0); Platelet Count 219 th/mm3 (150-450); White Blood Count 5.9 th/mm3 (4.0-11.0)
[2018-02-23 15:49] LABS: Activated Partial Thrombo Time 21.4 sec (24.3-30.1); INR 1.1 Ratio; Prothrombin Time 11.2 sec (9.8-11.6)
[2018-02-23 15:55] LABS: Alanine Aminotransferase 33 U/L (12-78); Albumin 4.3 g/dL (3.4-5.0); Anion Gap 7 meq/L (5-15); Aspartate Aminotransferase 23 U/L (15-37); Blood Urea Nitrogen 13 mg/dL (7-18); Calcium 8.8 mg/dL (8.5-10.1); Carbon Dioxide 25.2 meq/L (21.0-32.0); Chloride 109 meq/L (98-107); Cholesterol 221 mg/dL (120-200); Glomerular Filtration Rate 53 mL/min (>89); Glucose,Random 100 mg/dL (74-106); Magnesium 2.3 mg/dL (1.5-2.5); Potassium 3.8 meq/L (3.5-5.1); Sodium 141 meq/L (136-145)
[2018-02-23 15:59] LABS: Alkaline Phosphatase 99 U/L (45-117); Chol/HDL Ratio 5.32 Ratio; HDL Cholesterol 41.5 mg/dL (40.0-60.0); LDL Cholesterol,Calculated 158 mg/dL (0-99); Total Protein 7.9 g/dL (6.4-8.2); Triglycerides 107 mg/dL (42-150)
--- NOTE | 2018-02-23 18:06 | ECHRPT ---
Indication: CVA/TIA CONCLUSIONS The left ventricular systolic function is low normal with an estimated ejection fraction in the rang e of 50- 55%. Mild concentric left ventricular hypertrophy. Normal left ventricular size. Trace mitral valve regurgitation. There is trace tricuspid valve regurgitation. Trivial pulmonary valve regurgitation. The inferior vena cava was not well visualized. BP: / HR: Rhythm: Sinus MEASUREMENTS (Male / Female) Normal Values Technical Quality:Fair 2D ECHO LV Diastolic Diameter PLAX 4.6 cm 4.2 - 5.9 / 3.9 - 5.3 cm LV Systolic Diameter PLAX 3.1 cm IVS Diastolic Thickness 1.1 cm 0.6 - 1.0 / 0.6 - 0.9 cm LVPW Diastolic Thickness 1.1 cm 0.6 - 1.0 / 0.6 - 0.9 cm LV Relative Wall Thickness 0.5 RV Internal Dim ED PLAX 3.7 cm LVOT Diameter 2.2 cm LA Systolic Diameter LX 3.6 cm 3.0 - 4.0 / 2.7 - 3.8 cm Ascending Aorta Diameter 3.4 cm M-MODE LA Systolic Diameter MM 3.6 cm LA Ao Ratio MM 1.3 AV Cusp Separation MM 2.1 cm DOPPLER AV Peak Velocity 132.0 cm/s AV Peak Gradient 7.0 mmHg LVOT Peak Velocity 83.4 cm/s LVOT Peak Gradient 2.8 mmHg AV Area Cont Eq pk 2.4 cm MV Area PHT 3.2 cm Mitral E Point Velocity 71.1 cm/s Mitral A Point Velocity 68.6 cm/s Mitral E to A Ratio 1.0 LV E' Lateral Velocity 14.4 cm/s Mitral E to LV E' Lateral Ratio 4.9 LV E' Septal Velocity 7.5 cm/s Mitral E to LV E' Septal Ratio 9.5 FINDINGS LEFT VENTRICLE The left ventricular systolic function is low normal with an estimated ejection fraction in the rang e of 50- 55%. Mild concentric left ventricular hypertrophy. Normal left ventricular size. RIGHT VENTRICLE Normal right ventricular size and systolic function. LEFT ATRIUM The left atrial size is normal. RIGHT ATRIUM The right atrial size is normal. ATRIAL SEPTUM Normal atrial septal thickness without atrial level shunting by limited color doppler interrogation. AORTA The aortic root and proximal ascending aorta are normal in size on limited imaging. MITRAL VALVE Trace mitral valve regurgitation. AORTIC VALVE Trileaflet aortic valve. No aortic valve stenosis or regurgitation. TRICUSPID VALVE Structurally normal tricuspid valve. There is trace tricuspid valve regurgitation. PULMONARY VALVE Trivial pulmonary valve regurgitation. VESSELS The inferior vena cava was not well visualized. PERICARDIUM No pericardial effusion. Kayla Nieto MD, FACC (Electronically Signed) Final Date:23 February 2018 18:06
[2018-02-23] MEDS: Lisinopril 5 MG Tablet PO SCH (20:10)
--- NOTE | 2018-02-24 01:11 | HM ---
Date Performed: 02/22/2018 Time Performed: 17:07:00 HOOKUP DATE: 02/22/18 05:07:00 PM Fri ANALYSIS START TIME: 02/22/2018 5:12:00 PM ANALYSIS END TIME: 02/23/2018 4:18:59 PM PATIENT AGE: 42 PATIENT HEIGHT PATIENT WEIGHT DRUG LIST PATIENT DIAGNOSIS TEST NARRATIVE: The patient's average heart rate was 72 BPM. Heart rates greater than 120 B PM were noted < 1% of the time. Heart rates less than 50 BPM were noted 8% of the time. No pause s exceeding 2.0 seconds were noted. 34 ventricular ectopics, which represented < 1% of the total beat count, were noted. The highest ventricular ectopic frequency occurred from 09:00 PM to 10:00 PM Fri. During this time 11 VE(s) occurred. Ventricular ectopics were observed as 34 isolated beat(s) only. No couplets or runs were noted. 2 supraventricular ectopics, which represented < 1% of th e total beat count, were noted. The highest supraventricular ectopic frequency occurred from 10:00 P M to 11:00 PM Fri. During this time 1 SVE(s) occurred. No episodes of ST depression (defined as -1.0 mm or more) were noted in channel 1. No episodes of ST depression (defined as -1.0 mm or more) were noted in channel 2. No episodes of ST depression (defined as -1.0 mm or more) were noted in fareed nnel 3. PATIENT DIARY WAS NOT RETURNED WITH HOLTER MONITOR. TEST INTERPRETATION: Predominant rhythm was normal sinus. Intermittent sinus bradycardia. Rare PVCs. Rare APCs. No pauses exceeding 2.0 seconds. Signed by : Bakari Espinal
[2018-02-24] MEDS: Chlorhexidine Gluconate 2% 1 Pack (2 Cloths) TOPICAL SCH (04:24)
[2018-02-24] MEDS: Aspirin 325 MG Tablet PO SCH (08:32)
[2018-02-24] MEDS: Senna/Docusate Sodium 8.6/50 MG Tablet PO SCH (08:32)
[2018-02-24] MEDS: hydrALAZINE 50 MG Tablet PO SCH (08:33)
[2018-02-24] MEDS: Lisinopril 5 MG Tablet PO SCH (08:33)
[2018-02-24] MEDS: Insulin NovoLOG Aspart Correctional Sugar Inj SQ SCH ×3 (09:46→16:13)
--- NOTE | 2018-02-24 12:13 | P.DS ---
Date of admission: 02/22/18 13:40 Primary care physician: UNKNOWN Brief History from admission: HPI as documented by the admitting physician: 42yM who presented to the ED complaining of sudden-onset right upper and lower extremity weakness and numbness which started at 10 AM. He denies any difficulty with word-finding, slurred speech, confusion, visual disturbance, facial droop, or left-sided symptoms. A stroke alert was activated in the ED, the patient was found to have an NIHSS of 5, and neurology was consulted; he was given alteplase at 12:04 PM. He also had an elevated BP on arrival (200s systolic) and was given 2 doses of labetalol prior to initiation of tPA. He reports complete resolution of symptoms and offers no complaints at present. Past medical history significant for HTN but does not take medication for this. Denies tobacco, alcohol, or illicit drug use. Family history significant for uncle with stroke. Patient update on day of discharge: Patient reports he is feeling great. No stroke symptoms. Eager to go home. DS: Diagnosis - Discharge Diagnosis (1) Acute CVA (cerebrovascular accident) Status: Acute (2) Hypertension Status: Chronic (3) Hyperlipidemia Status: Acute DS: Medications - Discharge Medications Prescriptions: aspirin 325 mg PO DAILY #30 tab lisinopril 10 mg PO DAILY #30 tab pravastatin 40 mg PO HS #30 tab DS: Summary Hospital Course: 42-year-old male with history of hypertension admitted as a stroke alert. Patient underwent TPA administration. MRI revealed a lacunar infarct. He was followed by neurology. His symptoms completely resolved after TPA. Follow-up head CT was negative. No carotid disease noted on neck CTA. His blood pressure was noted to be uncontrolled, the patient was started on antihypertensives. He is advised to follow-up outpatient with his PCP for further titration. He will continue on aspirin daily per neurology recommendations. He was started on statin for hyperlipidemia. - Time Spent with Patient Total time spent providing and/or coordinating discharge services: Less than 30 minutes - Quality: Stroke Last date observed well: 02/22/18 Last time observed well: 10:00 - Quality: VTE Deep Vein Thrombosis/Pulmonary Embolism Present on Admission: No Exam Vital signs: Vital Signs 02/23/18 12:23 02/23/18 13:00 02/23/18 13:03 Temperature Pulse Rate 68 69 69 Respiratory Rate 24 28 H Blood Pressure 174/118 H 215/138 H Pulse Oximetry 97 97 99 02/23/18 13:07 02/23/18 13:30 02/23/18 13:35 Temperature Pulse Rate 70 74 72 Respiratory Rate 26 H 20 19 Blood Pressure 189/115 H 184/122 H 172/104 H Pulse Oximetry 98 98 97 02/23/18 13:45 02/23/18 14:00 02/23/18 14:15 Temperature Pulse Rate 73 74 73 Respiratory Rate 24 26 H 25 H Blood Pressure 189/108 H 167/100 H 168/96 H Pulse Oximetry 99 100 98 02/23/18 14:39 02/23/18 14:45 02/23/18 15:00 Temperature Pulse Rate 106 H 94 H 70 Respiratory Rate 22 26 H 25 H Blood Pressure 146/94 H 110/55 L Pulse Oximetry 99 98 98 02/23/18 15:15 02/23/18 15:30 02/23/18 15:45 Temperature Pulse Rate 67 78 78 Respiratory Rate 22 20 29 H Blood Pressure 96/51 L 99/58 L 112/66 Pulse Oximetry 96 96 98 02/23/18 16:00 02/23/18 16:15 02/23/18 16:30 Temperature 98.6 F Pulse Rate 80 89 84 Respiratory Rate 20 29 H 30 H Blood Pressure 108/62 144/112 H 126/66 Pulse Oximetry 97 99 97 02/23/18 16:45 02/23/18 17:00 02/23/18 17:15 Temperature Pulse Rate 76 83 79 Respiratory Rate 20 20 23 Blood Pressure 113/59 L 113/62 111/60 Pulse Oximetry 97 98 97 02/23/18 17:30 02/23/18 18:00 02/23/18 18:06 Temperature Pulse Rate 76 75 73 Respiratory Rate 30 H 22 23 Blood Pressure 113/56 L 123/65 Pulse Oximetry 98 95 98 02/23/18 19:00 02/23/18 19:06 02/23/18 20:00 Temperature 98.1 F Pulse Rate 80 83 84 Respiratory Rate 26 H 38 H 32 H Blood Pressure 116/75 Pulse Oximetry 97 97 99 02/23/18 20:06 02/23/18 21:00 02/23/18 21:06 Temperature Pulse Rate 83 78 80 Respiratory Rate 18 23 29 H Blood Pressure 122/77 127/77 Pulse Oximetry 98 97 97 02/23/18 22:00 02/23/18 23:00 02/24/18 00:00 Temperature 98.3 F Pulse Rate 86 75 60 Respiratory Rate 24 22 16 Blood Pressure 130/81 121/56 L Pulse Oximetry 95 95 95 02/24/18 01:00 02/24/18 02:00 02/24/18 03:00 Temperature Pulse Rate 60 59 L 60 Respiratory Rate 16 19 20 Blood Pressure 138/67 Pulse Oximetry 94 L 92 L 94 L 02/24/18 04:00 02/24/18 05:00 02/24/18 06:00 Temperature 98.6 F Pulse Rate 53 L 51 L 53 L Respiratory Rate 12 15 17 Blood Pressure 107/61 110/61 Pulse Oximetry 92 L 96 90 L 02/24/18 07:00 02/24/18 08:00 02/24/18 09:00 Temperature 98.1 F Pulse Rate 64 75 62 Respiratory Rate 19 38 H 24 Blood Pressure 147/69 H Pulse Oximetry 96 98 96 02/24/18 10:00 02/24/18 11:00 02/24/18 12:00 Temperature 98.3 F Pulse Rate 67 87 72 Respiratory Rate 19 21 22 Blood Pressure 133/62 128/76 Pulse Oximetry 94 L 97 94 L Intake & Output 02/23/18 02/24/18 02/24/18 18:59 06:59 18:59 Intake Total 550 / 550 Output Total 600 / 600 Balance -50 / -50 Weight 103.6 kg Intake: IV 200 / 200 KCl 20 mEq Premix Inj 20 meq In 200 / 200 100 ml @ 50 mls/hr IV.SIG Q2H PRN Rx#:[id number] Oral 350 / 350 Output: Urine 600 / 600 Other: # Voids 2 Narrative: GENERAL: This is a well-nourished, well-developed patient, in no apparent distress. CARDIOVASCULAR: Normal rate and regular rhythm without murmurs, gallops, or rubs. RESPIRATORY: Good respiratory efforts. Breath sounds equal and clear to auscultation bilaterally. GASTROINTESTINAL: Abdomen soft, non-tender, non-distended. Normal active bowel sounds MUSCULOSKELETAL: Extremities without cyanosis, or edema. NEURO: Alert & Oriented x4 to person, place, time, situation. Moves all ext x4 PSYCH: Appropriate mood and affect. Results Procedures completed during hospitalization: TPA administration. Labs on day of discharge: Labs from last 24 hours 02/24/18 02/24/18 02/23/18 11:44 07:17 20:20 WBC RBC Hgb Hct MCV MCH MCHC RDW Plt Count MPV Neut % (Auto) Lymph % (Auto) Chase % (Auto) Eos % (Auto) Baso % (Auto) Neut # (Auto) Lymph # (Auto) Chase # (Auto) Eos # (Auto) Baso # (Auto) WBC Differential Differential Comment PT INR APTT Lupus Anticoagulant LA PTT Screen dRVVT Screen Protein C Antigen APC Resistance Protein S Activity Antithrombin III Activ Factor V Leiden Mutat Factor V Leiden Interp Factor VIII Activity Sodium Potassium Chloride Carbon Dioxide Anion Gap BUN Creatinine Estimated GFR POC Glucose 94 84 102 Random Glucose Hemoglobin A1c Calcium Magnesium Total Bilirubin AST ALT Alkaline Phosphatase Total Protein Albumin Triglycerides Cholesterol LDL Cholesterol, Calc HDL Cholesterol Cholesterol/HDL Ratio Homocysteine Cardiovas ALEJANDRINA Screen Beta-2-GPI IgG Ab Beta-2-GPI IgA Ab Beta-2-GPI IgM Ab Phosphatidylserine IgG Phosphatidylserine IgA Phosphatidylserine IgM Anti-Cardiolipin IgG Ab Anti-Cardiolipin IgM Ab RPR MTHFR Mutation Detect Prothrombin [id number] Mut 02/23/18 02/23/18 02/23/18 15:10 15:10 15:10 WBC 5.9 RBC 5.70 Hgb 16.7 Hct 49.5 MCV 86.9 MCH 29.3 MCHC 33.7 RDW 13.0 Plt Count 219 MPV 9.3 Neut % (Auto) 55.9 Lymph % (Auto) 34.5 Chase % (Auto) 5.1 Eos % (Auto) 3.9 Baso % (Auto) 0.6 Neut # (Auto) 3.3 Lymph # (Auto) 2.0 Chase # (Auto) 0.3 Eos # (Auto) 0.2 Baso # (Auto) 0.0 WBC Differential . Differential Comment Auto diff final PT 11.2 INR 1.1 APTT 21.4 L Lupus Anticoagulant LA PTT Screen dRVVT Screen Protein C Antigen APC Resistance Protein S Activity Antithrombin III Activ Factor V Leiden Mutat Factor V Leiden Interp Factor VIII Activity Sodium Potassium Chloride Carbon Dioxide Anion Gap BUN Creatinine Estimated GFR POC Glucose Random Glucose Hemoglobin A1c Pending Calcium Magnesium Total Bilirubin AST ALT Alkaline Phosphatase Total Protein Albumin Triglycerides Cholesterol LDL Cholesterol, Calc HDL Cholesterol Cholesterol/HDL Ratio Homocysteine Cardiovas ALEJANDRINA Screen Beta-2-GPI IgG Ab Beta-2-GPI IgA Ab Beta-2-GPI IgM Ab Phosphatidylserine IgG Phosphatidylserine IgA Phosphatidylserine IgM Anti-Cardiolipin IgG Ab Anti-Cardiolipin IgM Ab RPR MTHFR Mutation Detect Prothrombin [id number] Mut 02/23/18 02/23/18 02/23/18 15:10 15:10 15:10 WBC RBC Hgb Hct MCV MCH MCHC RDW Plt Count MPV Neut % (Auto) Lymph % (Auto) Chase % (Auto) Eos % (Auto) Baso % (Auto) Neut # (Auto) Lymph # (Auto) Chase # (Auto) Eos # (Auto) Baso # (Auto) WBC Differential Differential Comment PT INR APTT Lupus Anticoagulant Pending LA PTT Screen Pending dRVVT Screen Pending Protein C Antigen Pending APC Resistance Pending Protein S Activity Pending Antithrombin III Activ Pending Factor V Leiden Mutat Pending Factor V Leiden Interp Pending Factor VIII Activity Pending Sodium 141 Potassium 3.8 Chloride 109 H Carbon Dioxide 25.2 Anion Gap 7 BUN 13 Creatinine 1.45 H Estimated GFR 53 L POC Glucose Random Glucose 100 Hemoglobin A1c Calcium 8.8 Magnesium 2.3 Total Bilirubin 0.7 AST 23 ALT 33 Alkaline Phosphatase 99 Total Protein 7.9 Albumin 4.3 Triglycerides 107 Cholesterol 221 H LDL Cholesterol, Calc 158 H HDL Cholesterol 41.5 Cholesterol/HDL Ratio 5.32 Homocysteine Cardiovas Pending ALEJANDRINA Screen Beta-2-GPI IgG Ab Pending Beta-2-GPI IgA Ab Pending Beta-2-GPI IgM Ab Pending Phosphatidylserine IgG Pending Phosphatidylserine IgA Pending Phosphatidylserine IgM Pending Anti-Cardiolipin IgG Ab Pending Anti-Cardiolipin IgM Ab Pending RPR MTHFR Mutation Detect Pending Prothrombin [id number] Mut Pending 02/23/18 02/23/18 15:10 12:26 WBC RBC Hgb Hct MCV MCH MCHC RDW Plt Count MPV Neut % (Auto) Lymph % (Auto) Chase % (Auto) Eos % (Auto) Baso % (Auto) Neut # (Auto) Lymph # (Auto) Chase # (Auto) Eos # (Auto) Baso # (Auto) WBC Differential Differential Comment PT INR APTT Lupus Anticoagulant LA PTT Screen dRVVT Screen Protein C Antigen APC Resistance Protein S Activity Antithrombin III Activ Factor V Leiden Mutat Factor V Leiden Interp Factor VIII Activity Sodium Potassium Chloride Carbon Dioxide Anion Gap BUN Creatinine Estimated GFR POC Glucose 92 Random Glucose Hemoglobin A1c Calcium Magnesium Total Bilirubin AST ALT Alkaline Phosphatase Total Protein Albumin Triglycerides Cholesterol LDL Cholesterol, Calc HDL Cholesterol Cholesterol/HDL Ratio Homocysteine Cardiovas ALEJANDRINA Screen Pending Beta-2-GPI IgG Ab Beta-2-GPI IgA Ab Beta-2-GPI IgM Ab Phosphatidylserine IgG Phosphatidylserine IgA Phosphatidylserine IgM Anti-Cardiolipin IgG Ab Anti-Cardiolipin IgM Ab RPR Pending MTHFR Mutation Detect Prothrombin [id number] Mut - Impressions ITS Impressions Head CTA 02/22/18 10:44 CONCLUSION: 1. Negative CTA Head. Neck CTA 02/22/18 10:44 CONCLUSION: 1. Negative CTA carotids. Hypoplastic vertebral arteries. Head MRI 02/22/18 11:36 CONCLUSION: 1. A small acute to subacute lacunar infarction involving the left tretn radiata. Head CT 02/23/18 11:46 CONCLUSION: 1. Negative CT Head non contrast. . Discharge Plan - Discharge Disposition Patient Disposition: 01 Discharge Home - Discharge Condition Condition: Good - Discharge Order Discharge Orders: Discharge Order (Routine); Ordered 02/24/18 Ordered By: Carmen Hall - Discharge Details Discharge Comment: OK to DC after patient is seen and cleared by Dr. Bosch - Physicians Team Primary Care Provider: UNKNOWN, Attending Provider: Carmen Hall
[2018-02-24 13:24] LABS: Hemoglobin A1c 5.4 % (4.3-6.0)
[2018-02-24 16:12] VITALS: BP 146/91; PULSE 87; RESP 25; TEMP 98.4; O2SAT 96
--- NOTE | 2018-02-24 18:05 | P.PNNEU ---
Subjective Subjective Comments: no new spells Active Medications: Active Medications Acetaminophen (Tylenol) 650 mg PO Q6H PRN PRN Reason: PAIN 1-10 AND/OR FEVER >101F Al Hydroxide/Mg Hydroxide (Milk Of Vanesa Garnett) 30 ml PO Q12H PRN PRN Reason: Mild Constipation Aspirin (Aspirin) 325 mg PO DAILY [facility] Last Admin: 02/24/18 08:32 Dose: 325 mg Bisacodyl (Dulcolax Supp) 10 mg RECTAL DAILY PRN PRN Reason: SEVERE CONSITIPATION Chlorhexidine Gluconate (Chlorhexidine 2% Cloth) 3 pack TOPICAL DAILY@0400 [facility] Stop: 02/28/18 03:59 Last Admin: 02/24/18 04:24 Dose: Not Given Chlorhexidine Gluconate (Chlorhexidine 2% Cloth) 3 pack TOPICAL DAILY@0400 PRN PRN Reason: Extra cloth needed Stop: 02/28/18 03:59 Dextrose (D50w Vial) 50 ml IV.PUSH UNSCH PRN PRN Reason: PER HYPOGLYCEMIA PROTOCOL Enalaprilat (Vasotec Inj) 1.25 mg IV.PUSH Q4H PRN PRN Reason: For SBP > 220 or DBP > 120 Glucagon (Glucagon Inj) 1 mg OTHER UNSCH PRN PRN Reason: for Hypoglycemia Protocol Hydralazine HCl (Apresoline) 50 mg PO BID [facility] Last Admin: 02/24/18 08:33 Dose: 50 mg Hydralazine HCl (Apresoline Inj) 20 mg IV.PUSH Q2H PRN PRN Reason: SBP > 160 Nicardipine HCl 25 mg/ Sodium (Chloride) 250 mls @ 50 mls/hr IV.CONT TITRATE PRN; Protocol PRN Reason: Per Protocol Last Titration: 02/23/18 15:34 Dose: 0 mg/hr, 0 mls/hr Magnesium Sulfate 2 gm/ Sodium (Chloride) 100 mls @ 50 mls/hr IV.SIG UNSCH PRN PRN Reason: For Magnesium 1.2 - 1.6 mg/dL Potassium Chloride (Kcl 40 Meq Premix Inj) 40 meq in 100 mls @ 50 mls/hr IV.SIG Q2H PRN PRN Reason: For Potassium 2.8 - 3.2 mEq/L Potassium Chloride (Kcl 20 Meq Premix Inj) 20 meq in 100 mls @ 50 mls/hr IV.SIG Q2H PRN PRN Reason: For Potassium 3.3 - 3.5 mEq/L Potassium Chloride (Kcl 20 Meq Premix Inj) 20 meq in 100 mls @ 50 mls/hr IV.SIG Q2H PRN PRN Reason: For Potassium 2.8 - 3.2 mEq/L Last Infusion: 02/23/18 12:25 Dose: Infused Potassium Phosphate 30 mmol/ (Sodium Chloride) 260 mls @ 42 mls/hr IV.SIG UNSCH PRN PRN Reason: SEE LABEL COMMENTS Magnesium Sulfate 4 gm/ Sodium (Chloride) 100 mls @ 50 mls/hr IV.SIG UNSCH PRN PRN Reason: For Magnesium 0.9 - 1.1 mg/dL Potassium Chloride (Kcl 40 Meq Premix Inj) 40 meq in 100 mls @ 25 mls/hr IV.SIG UNSCH PRN PRN Reason: For Potassium 3.3 - 3.5 mEq/L Sodium Phosphate 30 mmol/ (Sodium Chloride) 260 mls @ 42 mls/hr IV.SIG UNSCH PRN PRN Reason: For Phosphorus < 2.5 mg/dL Insulin Aspart (Novolog Insulin Correctional Sugar Inj) 0 unit SQ ACHS [facility]; Protocol Last Admin: 02/24/18 16:13 Dose: Not Given Labetalol HCl (Trandate Inj) 10 mg IV.PUSH Q2H PRN PRN Reason: For SBP > 220 or DBP > 120 Lactulose (Lactulose Liq) 30 ml PO DAILY PRN PRN Reason: SEVERE CONSITIPATION Lisinopril (Prinivil) 5 mg PO BID [facility] Last Admin: 02/24/18 08:33 Dose: 5 mg Magnesium Oxide (Mag-Ox) 800 mg PO UNSCH PRN PRN Reason: For Magnesium 1.2 - 1.6 mg/dL Ondansetron HCl (Zofran Inj) 4 mg IV.PUSH Q6H PRN PRN Reason: NAUSEA OR VOMITING Potassium Bicarb/Potassium Chloride (K-Lyte Cl Eff) 50 meq PO UNSCH PRN PRN Reason: For Potassium 3.3 - 3.5 mEq/L Potassium Phosphate (K-Phos Original) 2,000 mg PO UNSCH PRN PRN Reason: SEE LABEL COMMENTS Potassium Phosphate (K-Phos Original) 2,000 mg PO Q4H PRN PRN Reason: Phosphorus Less Than 2.5 mg/dL Pravastatin Sodium (Pravachol) 40 mg PO HS [facility] Last Admin: 02/23/18 20:10 Dose: 40 mg Senna/Docusate Sodium (Cee-Colace) 1 tab PO BID [facility] Last Admin: 02/24/18 08:32 Dose: 1 tab Sennosides (Senokot) 17.2 mg PO Q12H PRN PRN Reason: Moderate Constipation Sodium Chloride (Ns Flush) 2 ml IV.FLUSH BID [facility] Last Admin: 02/24/18 08:33 Dose: 2 ml Sodium Chloride (Ns Flush) 2 ml IV.FLUSH UNSCH PRN PRN Reason: FLUSH AFTER USING IV ACCESS Allergies/Adverse Reactions: Allergies Allergy/AdvReac Type Severity Reaction Status Date / Time No Known Allergies Allergy Verified 02/22/18 10:29 Physical Exam Vital signs: Vital Signs 02/23/18 18:06 02/23/18 19:00 02/23/18 19:06 Temperature Pulse Rate 73 80 83 Respiratory Rate 23 26 H 38 H Blood Pressure 123/65 116/75 Pulse Oximetry 98 97 97 02/23/18 20:00 02/23/18 20:06 02/23/18 21:00 Temperature 98.1 F Pulse Rate 84 83 78 Respiratory Rate 32 H 18 23 Blood Pressure 122/77 Pulse Oximetry 99 98 97 02/23/18 21:06 02/23/18 22:00 02/23/18 23:00 Temperature Pulse Rate 80 86 75 Respiratory Rate 29 H 24 22 Blood Pressure 127/77 130/81 Pulse Oximetry 97 95 95 02/24/18 00:00 02/24/18 01:00 02/24/18 02:00 Temperature 98.3 F Pulse Rate 60 60 59 L Respiratory Rate 16 16 19 Blood Pressure 121/56 L 138/67 Pulse Oximetry 95 94 L 92 L 02/24/18 03:00 02/24/18 04:00 02/24/18 05:00 Temperature 98.6 F Pulse Rate 60 53 L 51 L Respiratory Rate 20 12 15 Blood Pressure 107/61 Pulse Oximetry 94 L 92 L 96 02/24/18 06:00 02/24/18 07:00 02/24/18 08:00 Temperature 98.1 F Pulse Rate 53 L 64 75 Respiratory Rate 17 19 38 H Blood Pressure 110/61 147/69 H Pulse Oximetry 90 L 96 98 02/24/18 09:00 02/24/18 10:00 02/24/18 11:00 Temperature Pulse Rate 62 67 87 Respiratory Rate 24 19 21 Blood Pressure 133/62 Pulse Oximetry 96 94 L 97 02/24/18 12:00 02/24/18 13:00 02/24/18 14:00 Temperature 98.3 F Pulse Rate 72 82 83 Respiratory Rate 22 23 30 H Blood Pressure 128/76 137/85 Pulse Oximetry 94 L 98 97 02/24/18 15:00 02/24/18 16:00 02/24/18 16:01 Temperature 98.4 F Pulse Rate 90 88 87 Respiratory Rate 30 H 27 H 25 H Blood Pressure 146/91 H Pulse Oximetry 96 96 96 Intake & Output 02/23/18 02/24/18 02/24/18 18:59 06:59 18:59 Intake Total 550 / 550 Output Total 600 / 600 Balance -50 / -50 Weight 103.6 kg Intake: IV 200 / 200 KCl 20 mEq Premix Inj 20 meq In 200 / 200 100 ml @ 50 mls/hr IV.SIG Q2H PRN Rx#:[id number] Oral 350 / 350 Output: Urine 600 / 600 Other: # Voids 2 Narrative: dface sym 5/5 bue and ble now steady gait Objective Laboratory Results - last 24 hr 02/23/18 02/23/18 02/24/18 15:10 20:20 07:17 POC Glucose 102 84 Hemoglobin A1c 5.4 02/24/18 02/24/18 11:44 16:00 POC Glucose 94 105 Hemoglobin A1c Review/Management - Review/Management Plan: imp small deep cva on mri fu labs holter echo asa 325 for now ctax2 neg ok to tele floor and bp to 140/80 ok 02/24/18 echo and holter nl labs neg ldl inc on statin asa 325 will need labs checked on statin in two weeks at [facility] he claudette call me for hyper coag results ok to dc prob lacunar type cva
[2018-02-25 14:57] LABS: Anti-Nuclear Antibody Screen Neg (Neg)
[2018-02-26 23:52] LABS: Homocysteine (Cardiovascular) 12.3 umol/L (<11.4)
[2018-02-27 13:53] LABS: Dil Russell Viper Venom Conf ( ND (NEGATIVE); Dil Russell Viper Venom Time M ND (CORRECTED); Lupus Anticoagulant PTT Screen 27 seconds (< OR = 40)
[2018-02-28 03:51] LABS: Activated Protein C Resistance 4.6 ratio (> OR = 2.1)
[2018-02-28 15:01] LABS: Factor V Leiden Mutation Negative (Negative); Protein C Antigen 96 % (70-150)
== END 2018-02-24 18:25 | disposition home or self-care (01) ==
LOC: NEPE 10:25 → NEDA 13:40 → N03 14:50
PROVIDERS: ADMIT Family Medicine; ATTEND Family Medicine